=== PATIENT | male | born 2000 | race Caucasian/White ===

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

== ENCOUNTER 2019-07-16 19:19 | Emergency (ER) | payer MEDICAID ==
[2019-07-16] MEDS ORDERED: Ibuprofen 800 MG Tab PO ONE (20:32)
--- NOTE | 2019-07-16 20:55 | EDM.PDOC ---
ED HPI GENERAL MEDICAL PROBLEM - General Chief Complaint: General Stated Complaint: BAD COLD, FEVER Time Seen by Provider: 07/16/19 19:20 Source of Information: Reports: Patient, Family History Limitations: Reports: Other (Developmental delay) - History of Present Illness INITIAL COMMENTS - FREE TEXT/NARRATIVE: chief complaint: cough for 2 weeks, now with fever. This is a 18 year old male present to ER with his Mom, who give report due to Rajat's autism and developmental delay. Reports cough for the past two week, about 4 days started to have intermittent fevers. denies any nausea, vomiting, diarrhea, rash, tick bite, tonsil pain. reports nasal congestion and sore throat. Onset: Gradual Duration: Week(s): (two), Getting Worse Quality: Reports: Other (cough, fever) Severity: Moderate Improves with: Reports: Medication (taking Nyquil) Worsens with: Reports: None Associated Symptoms: Reports: Fever/Chills Treatments GAS ENGINEER: Reports: Acetaminophen (last dose at 1830), NSAIDS Middle Back Pain Score (Numeric/FACES): 8 - Related Data Allergies Allergy/AdvReac Type Severity Reaction Status Date / Time No Known Allergies Allergy Verified 06/28/18 15:40 Home Meds: Home Meds ARIPiprazole [Aripiprazole] 5 mg PO DAILY 06/28/18 [History] Cholecalciferol (Vitamin D3) [Vitamin D3] 1 tab PO DAILY 06/28/18 [History] FLUoxetine HCl [Fluoxetine HCl] 10 mg PO DAILY 06/28/18 [History] Losartan [Cozaar] 50 mg PO DAILY 06/28/18 [History] Ondansetron [Zofran ODT] 4 mg PO Q6H PRN 06/28/18 [History] buPROPion [Wellbutrin SR] 300 mg PO DAILY 06/28/18 [History] traZODone HCl [Trazodone HCl] 300 mg PO BEDTIME 06/28/18 [History] ALPRAZolam [Xanax] 0.25 mg PO ASDIRECTED PRN 07/16/19 [History] Topiramate [Topiramate ER] 100 mg PO DAILY 07/16/19 [History] Past Medical History HEENT History: Reports: Other (See Below) Other HEENT History: Ear infections Cardiovascular History: Reports: Arrhythmia, Hypertension, Other (See Below) Other Cardiovascular History: Other heart problems Respiratory History: Reports: Asthma, Other (See Below) Other Respiratory History: Bronchial spasms Gastrointestinal History: Reports: None Genitourinary History: Reports: Other (See Below) Other Genitourinary History: Bladder problems Musculoskeletal History: Reports: None Neurological History: Reports: Migraines, Speech Problems, Other (See Below) Other Neuro History: Some short term memory loss, apraxia Psychiatric History: Reports: Anxiety, Autism, Depression Endocrine/Metabolic History: Reports: Diabetes, Type II, Other (See Below) Other Endocrine/Metabolic History: Weight problems, off medication for DM Hematologic History: Reports: None Immunologic History: Reports: None Oncologic (Cancer) History: Reports: None Dermatologic History: Reports: None - Past Surgical History Head Surgeries/Procedures: Reports: None Social & Family History - Tobacco Use Smoking Status *Q: Never Smoker - Caffeine Use Caffeine Use: Reports: Coffee - Recreational Drug Use Recreational Drug Use: No - Living Situation & Occupation Living situation: Reports: Single, with Family (lives with Mom, siblings) Occupation: Disabled ED ROS GENERAL - Review of Systems Review Of Systems: See Below Constitutional: Reports: Fever, Chills HEENT: Reports: Sinus Problem, Throat Pain Respiratory: Reports: Cough (painful cough) Cardiovascular: Reports: No Symptoms Endocrine: Reports: No Symptoms GI/Abdominal: Reports: No Symptoms : Reports: No Symptoms Musculoskeletal: Reports: No Symptoms Skin: Reports: No Symptoms Neurological: Reports: No Symptoms Psychiatric: Reports: No Symptoms Hematologic/Lymphatic: Reports: No Symptoms Immunologic: Reports: No Symptoms ED EXAM, GENERAL - Physical Exam Exam: See Below Exam Limited By: Other (autism and developmental delay) General Appearance: Alert, No Apparent Distress, Obese Eye Exam: Bilateral Eye: EOMI, Normal Inspection Ears: Normal External Exam, Normal Canal Ear Exam: Bilateral Ear: Canal Normal, TM Bulging Nose: Nasal Tenderness, Nasal Swelling, Clear Rhinorrhea Throat/Mouth: Normal Lips, Normal Teeth, Normal Gums, Normal Voice, No Airway Compromise, Inflammation (pharynx) Head: Atraumatic, Normocephalic Neck: Normal Inspection, Supple, Non-Tender, Full Range of Motion Respiratory/Chest: No Respiratory Distress, Lungs Clear, No Accessory Muscle Use , Chest Non-Tender, Rhonchi (with cough otherwise clear) Cardiovascular: Regular Rate, Rhythm, No Murmur GI/Abdominal: Normal Bowel Sounds, Soft, Non-Tender Back Exam: Normal Inspection, Full Range of Motion Extremities: Normal Inspection, Normal Range of Motion Neurological: Alert, Normal Cognition (at baseline for patient) Psychiatric: Normal Affect, Normal Mood Skin Exam: Warm, Dry, Intact, Normal Color, No Rash Lymphatic: No Adenopathy Course - Vital Signs Last Recorded V/S: Last Vital Signs Temp 37.7 C 07/16/19 20:45 Pulse 118 H 07/16/19 19:59 Resp 20 07/16/19 19:59 BP 151/94 H 07/16/19 19:59 Pulse Ox 95 07/16/19 19:59 - Orders/Labs/Meds Orders: Active Orders 24 hr Category Date Time Status CULTURE STREP A CONFIRMATION [] Stat Lab 07/16/19 19:48 Results STREP SCRN A RAPID W CULT CONF [] Stat Lab 07/16/19 19:48 Results Meds: Medications Discontinued Medications Generic Name Dose Route Start Last Admin Trade Name Freq PRN Reason Stop Dose Admin Ibuprofen 800 mg 07/16/19 20:32 07/16/19 20:45 Motrin PO 07/16/19 20:33 800 mg ONETIME ONE Administration - Re-Assessments/Exams Free Text/Narrative Re-Assessment/Exam: 07/16/19 rapid strep and influenza A and B are negative will treat for bronchitis due to fever of 101, cough greater than 2 weeks. Mom reports had flu shot last week. given script for Instyl meds Zithromax and Robitussin AC, advise to follow up in 2 days sooner if not improved or symptoms worsen. Mom agrees with plan of ca Departure - Departure Time of Disposition: 20:51 Disposition: Home, Self-Care 01 Condition: Good Clinical Impression: Acute bronchitis with symptoms > 10 days - Discharge Information *PRESCRIPTION DRUG MONITORING PROGRAM REVIEWED*: Not Applicable *COPY OF PRESCRIPTION DRUG MONITORING REPORT IN PATIENT ISA: Not Applicable Instructions: Acute Bronchitis, Adult, [id number] Referrals: Sagrario Costa MD [Primary Care Provider] - Forms: ED Department Discharge Care Plan Goals: Acute Bronchitis greater than 10 days -start tonight Zithromax 2 tablets tonight, then one tablet daily x 4 days -start tonight Robitussin AC 10 ml every 4 to 6 hours for painful cough -continue Motrin and Tylenol for pain or fever -recheck in 2 days if not improving Return to ER for any worsen fever, increased pain, increased cough, or any concerns. or not improved - Problem List & Annotations (1) Acute bronchitis with symptoms > 10 days SNOMED Code(s): 42003239 Code(s): J20.9 - ACUTE BRONCHITIS, UNSPECIFIED Status: Acute Priority: High - Problem List Review Problem List Initiated/Reviewed/Updated: Yes - My Orders Last 24 Hours: My Active Orders 07/16/19 19:48 CULTURE STREP A CONFIRMATION [RM] Stat STREP SCRN A RAPID W CULT CONF [RM] Stat - Assessment/Plan Last 24 Hours: My Active Orders 07/16/19 19:48 CULTURE STREP A CONFIRMATION [RM] Stat STREP SCRN A RAPID W CULT CONF [RM] Stat Plan: Acute Bronchitis greater than 10 days -start tonight Zithromax 2 tablets tonight, then one tablet daily x 4 days -start tonight Robitussin AC 10 ml every 4 to 6 hours for painful cough -continue Motrin and Tylenol for pain or fever -recheck in 2 days if not improving Return to ER for any worsen fever, increased pain, increased cough, or any concerns. or not improved
== END 2019-07-16 21:13 | disposition home or self-care (01) ==
LOC: JP.ED 19:19
DX: J20.9 Acute bronchitis, unspecified (principal); I10 Essential (primary) hypertension; F41.9 Anxiety disorder, unspecified; F32.9 Major depressive disorder, single episode, unspecified; E11.9 Type 2 diabetes mellitus without complications; J45.909 Unspecified asthma, uncomplicated; Z79.899 Other long term (current) drug therapy
CPT/HCPCS: 87081; 87804; 87880; 99283; A9270

== ENCOUNTER 2020-10-31 06:52 | Inpatient (IN) | payer MEDICAID ==
[~2020-10-31 06:52] MED LIST: cefOXitin 2 GM Vial ONE
[2020-10-31] MEDS ORDERED: Acetaminophen 500 MG Tab PO ONE (07:00)
[2020-10-31] MEDS ORDERED: Scopolamine 1.5 MG Transdermal Patch TRDERM ONE (07:00)
[2020-10-31] MEDS ORDERED: Celecoxib 200 MG Cap PO ONE (07:00)
[2020-10-31] MEDS ORDERED: fentaNYL 250 MCG/5 ML SDV ONE ×2 (07:09→09:07)
[2020-10-31] MEDS ORDERED: Neostigmine Methylsulfate 1 MG/ML 5 ML Syringe ONE (07:10)
[2020-10-31] MEDS ORDERED: Dexamethasone 4 MG/ML SDV ONE (07:10)
[2020-10-31] MEDS ORDERED: Propofol 200 MG/20 ML SDV ONE (07:10)
[2020-10-31] MEDS ORDERED: Succinylcholine 200 MG/10 ML MDV ONE (07:10)
[2020-10-31] MEDS ORDERED: Rocuronium 50 MG/5 ML Vial ONE (07:10)
[2020-10-31] MEDS ORDERED: Glycopyrrolate 0.2 MG/ML 5 ML MDV ONE (07:10)
[2020-10-31] MEDS ORDERED: Ondansetron 4 MG/2 ML SDV ONE (07:10)
[2020-10-31] MEDS ORDERED: Magnesium Sulfate 9 GM in Sodium Chloride 0.9% 250 ML IV ONE (07:30)
[2020-10-31] MEDS ORDERED: Ketamine 50 MG in Sodium Chloride 0.9% 49.5 ML IV SCH (07:30)
[2020-10-31] MEDS ORDERED: Ketamine 500 MG/5 ML MDV IV SCH (07:30)
[2020-10-31] MEDS ORDERED: Dextrose 5%-Lactated Ringers 1,000 ML IV SCH (07:30)
[2020-10-31] MEDS ORDERED: Albuterol/Ipratropium 3.0-0.5 MG/3 ML Neb Soln NEB ONE (08:00)
[2020-10-31] MEDS ORDERED: cefOXitin 2 GM in Sodium Chloride 0.9% 50 ML IV ONE (08:15)
[2020-10-31] MEDS ORDERED: Lactated Ringers 1,000 ML ONE (09:11)
[2020-10-31] MEDS ORDERED: Labetalol 20 MG/4 ML Syringe ONE (09:24)
[2020-10-31] MEDS ORDERED: hydrOXYzine HCL 100 MG/2 ML SDV IM ONE (10:17)
[2020-10-31] MEDS ORDERED: fentaNYL 100 MCG/2 ML SDV IVPUSH ONE (10:18)
[2020-10-31] MEDS ORDERED: Cyclobenzaprine 10 MG Tab PO PRN (11:45)
[2020-10-31] MEDS ORDERED: Ondansetron 4 MG/2 ML SDV IVPUSH PRN (12:00)
[2020-10-31] MEDS ORDERED: Albuterol/Ipratropium 3.0-0.5 MG/3 ML Neb Soln INH PRN (12:00)
[2020-10-31] MEDS ORDERED: HYDROmorphone 1 MG/ML Syringe IV PRN (12:00)
[2020-10-31] MEDS ORDERED: Labetalol 20 MG/4 ML Syringe IVPUSH PRN (12:00)
[2020-10-31] MEDS ORDERED: hydrOXYzine HCL 100 MG/2 ML SDV IM PRN (12:00)
[2020-10-31] MEDS ORDERED: oxyCODONE 5 MG Tab PO PRN (12:00)
[2020-10-31] MEDS ORDERED: HYDROmorphone 0.5 MG/0.5 ML Syringe IVPUSH PRN (12:00)
[2020-10-31] MEDS ORDERED: Calcium Gluconate 10% 1 GM/10 ML SDV IVPUSH PRN (12:00)
[2020-10-31] MEDS ORDERED: Acetaminophen 500 MG Tab PO PRN (12:00)
[2020-10-31] MEDS ORDERED: diphenhydrAMINE 50 MG/ML SDV IVPUSH PRN (12:00)
[2020-10-31] MEDS ORDERED: Metoclopramide 10 MG/2 ML SDV IVPUSH PRN (12:00)
[2020-10-31] MEDS ORDERED: ALPRAZolam 0.25 MG Tab PO PRN (12:05)
[2020-10-31] MEDS ORDERED: Pantoprazole 40 MG Vial IVPUSH SCH (14:30)
[2020-10-31] MEDS: Albuterol/Ipratropium 3.0-0.5 MG/3 ML Neb Soln INH SCH ×2 (14:44→20:09)
[2020-10-31] MEDS: cefOXitin 2 GM in Sodium Chloride 0.9% 50 ML IV SCH ×2 (15:37→19:58)
[2020-10-31] MEDS: Heparin Sodium 5,000 Units/ML Vial SUBCUT SCH (15:39)
[2020-10-31] MEDS: Acetaminophen 500 MG Tab PO SCH (15:39)
[2020-10-31] MEDS: Losartan 50 MG Tab PO SCH (15:41)
[2020-10-31] MEDS ORDERED: MVI, Adult with Vitamin K 10 ML, Thiamine 200 MG, Zinc/Copper/Manganese/Selenium 1 ML i... IV SCH ×4 (16:00)
[2020-10-31] MEDS: ARIPiprazole 10 MG Tab PO SCH (20:04)
[2020-10-31] MEDS: Escitalopram 20 MG Tab PO SCH (20:04)
[2020-10-31] MEDS: Docusate Sodium 100 MG Cap PO SCH (20:04)
[2020-10-31] MEDS: Topiramate 100 MG Tab PO SCH (20:05)
[2020-10-31] MEDS: traZODone 50 MG Tab PO SCH (20:05)
[2020-10-31] MEDS: Dextrose 5%-Lactated Ringers 1,000 ML IV SCH (22:20)
[2020-11-01] MEDS: Heparin Sodium 5,000 Units/ML Vial SUBCUT SCH ×4 (00:07→23:52)
[2020-11-01] MEDS: Acetaminophen 500 MG Tab PO SCH ×4 (00:07→23:52)
[2020-11-01] MEDS: cefOXitin 2 GM in Sodium Chloride 0.9% 50 ML IV SCH ×3 (02:42→14:47)
[2020-11-01] MEDS: Dextrose 5%-Lactated Ringers 1,000 ML IV SCH (04:18)
[2020-11-01] MEDS ORDERED: Iopamidol 612 MG/ML 50 ML SDV PO ONE (04:52)
[2020-11-01] MEDS ORDERED: Ondansetron 4 MG Tab.DIS PO PRN (07:17)
[2020-11-01] MEDS: Albuterol/Ipratropium 3.0-0.5 MG/3 ML Neb Soln INH SCH ×4 (07:19→21:15)
[2020-11-01] MEDS ORDERED: Dextrose 5%-Lactated Ringers 1,000 ML IV SCH (07:30)
--- NOTE | 2020-11-01 08:05 | PN ---
DATE OF SERVICE: 11/01/2020 SUBJECTIVE: Rajat is postoperative day #1. Upper GI was normal. He has been up ambulating. Pain has been managed with the energy protocol. Oral intake was 840. Urine output 2000. LIVIA drain put out 70 mL of a light pink drainage. Remainder of review of systems negative for any pertinent positives and negatives. OBJECTIVE: GENERAL: Rajat Ace is a pleasant 20-year-old male. He is alert and orientated. VITAL SIGNS: TPR is 96.9, 92, 18. Blood pressure 142/74. HEENT: Negative. NECK: Supple. HEART: Regular rate and rhythm. LUNGS: Clear. ABDOMEN: Dressings dry and intact. Abdominal binder is on. LIVIA drain intact. EXTREMITIES: Without peripheral edema. ASSESSMENT: 1. Sleeve gastrectomy. 2. Liver biopsy. 3. Repair of diaphragmatic hernia. 4. Excision of mediastinal lipoma. POSTOPERATIVE DIAGNOSES: 1. Morbid obesity. 2. Hepatomegaly. 3. Diaphragmatic hernia. 4. Mediastinal lipoma. Date of procedure: 10/31/2020. Surgeon: Jack Dye MD. PLAN: 1. Decrease IV to 100 mL per hour. 2. May shower. 3. Zofran ODT 4 mg every 4 hours p.r.n. nausea. 4. Bariatric step 2 gastric bypass diet with no cereal. 5. Communication order, 3 med cups per hour, 1 every 20 minutes. 6. We will evaluate p.r.n. or in a.m. Lynnette Blackburn PA-C /[id number]
[2020-11-01] MEDS: Loratadine 10 MG Tab PO SCH (08:47)
[2020-11-01] MEDS: Fluticasone Propionate Nasal Spray 16 GM Bottle NASBOTH SCH (08:47)
[2020-11-01] MEDS: buPROPion 150 MG Tab.ER PO SCH (08:47)
[2020-11-01] MEDS: Docusate Sodium 100 MG Cap PO SCH ×2 (08:47→21:15)
[2020-11-01] MEDS: Celecoxib 200 MG Cap PO SCH ×2 (08:47→21:14)
[2020-11-01] MEDS: SCOPOLAMINE PATCH CHECK TOP SCH (08:48)
--- NOTE | 2020-11-01 09:06 | CR ---
UGI Limited HISTORY: Postbariatric surgery FINDINGS: Patient swallowed water-soluble contrast. Upright views of the abdomen show no evidence of extravasation or obstruction. There is a surgical drain in the left upper quadrant IMPRESSION: Status post bariatric surgery No extravasation or obstruction seen
[2020-11-01] MEDS: Losartan 50 MG Tab PO SCH (09:47)
[2020-11-01] MEDS ORDERED: Sodium Chloride 0.9% 10 ML Syringe IV PRN (11:25)
[2020-11-01] MEDS ORDERED: Pantoprazole 40 MG Delayed-Release Granules 1 Packet PO SCH (14:00)
[2020-11-01] MEDS ORDERED: MVI, Adult with Vitamin K 10 ML, Thiamine 200 MG, Zinc/Copper/Manganese/Selenium 1 ML i... IV SCH ×4 (16:00)
[2020-11-01] MEDS: traZODone 50 MG Tab PO SCH (21:13)
[2020-11-01] MEDS: Escitalopram 20 MG Tab PO SCH (21:14)
[2020-11-01] MEDS: Topiramate 100 MG Tab PO SCH (21:14)
[2020-11-01] MEDS: ARIPiprazole 10 MG Tab PO SCH (21:15)
[2020-11-02] MEDS: Albuterol/Ipratropium 3.0-0.5 MG/3 ML Neb Soln INH SCH ×2 (07:18→11:13)
[2020-11-02] MEDS ORDERED: Cyanocobalamin (Vitamin B12) 1,000 MCG/ML SDV IM ONE (09:00)
[2020-11-02] MEDS: Acetaminophen 500 MG Tab PO SCH (09:14)
[2020-11-02] MEDS: buPROPion 150 MG Tab.ER PO SCH (09:14)
[2020-11-02] MEDS: Celecoxib 200 MG Cap PO SCH (09:14)
[2020-11-02] MEDS: Docusate Sodium 100 MG Cap PO SCH (09:15)
[2020-11-02] MEDS: Losartan 50 MG Tab PO SCH (09:15)
[2020-11-02] MEDS: Loratadine 10 MG Tab PO SCH (09:15)
[2020-11-02] MEDS: Heparin Sodium 5,000 Units/ML Vial SUBCUT SCH (09:16)
[2020-11-02] MEDS: SCOPOLAMINE PATCH CHECK TOP SCH (09:16)
[2020-11-02] MEDS: Fluticasone Propionate Nasal Spray 16 GM Bottle NASBOTH SCH (09:17)
--- NOTE | 2020-11-02 10:01 | DISCH ---
ADMISSION DIAGNOSES: 1. Morbid obesity, body mass index 58. 2. Sleep apnea. 3. Asperger's syndrome. 4. Diabetes type 2. DISCHARGE DIAGNOSES: 1. Sleeve gastrectomy. 2. Liver biopsy. 3. Repair of diaphragmatic hernia. 4. Excision of mediastinal lipoma. POSTOPERATIVE DIAGNOSES: 1. Morbid obesity. 2. Hepatomegaly. 3. Diaphragmatic hernia. 4. Mediastinal lipoma. 5. Date of procedure: 10/31/2020. Surgeon: Jack Dye MD. HISTORY: Rajat Ace is a pleasant 20-year-old male with longstanding history of morbid obesity and increasing comorbidities. After preoperative evaluation and discussion of possible risks and possible complications, he wished to proceed with surgical procedure. HOSPITAL COURSE: Rajat had his surgery on 10/31/2020. He had no operative complications. On postoperative day #1, his upper GI was normal and he was advanced to step 2 gastric bypass diet with no cereal. He was able to shower. IV rate decreased. On postoperative day #2, vital signs stable. He received dietary instruction. Oral intake was 1530. Urine output 2225. He was able to be discharged to home. PHYSICAL EXAMINATION: GENERAL: Rajat Ace is a 20-year-old male. VITAL SIGNS: Height 5 feet 11 inches, weight is 421 pounds 9.6 ounces, BMI 58. TPR 97.3, 106, 16, blood pressure 149/75. HEENT: Negative. NECK: Supple. HEART: Regular rate and rhythm. LUNGS: Clear. ABDOMEN: Incisions look good. LIVIA drain will be removed and 4x4s will be placed over the LIVIA drain site prior to discharge. Abdominal binder has been on. EXTREMITIES: Without peripheral edema. DISPOSITION: Discharged to home. CONDITION: Stable and improving. FOLLOWUP APPOINTMENTS: With Lynnette Blackburn PA-C, on 11/11/2020 at 9 a.m. HOME MEDICATIONS: 1. Tylenol 1000 mg every 8 hours p.r.n. pain. 2. Celebrex 200 mg b.i.d. for 2 weeks. 3. He is to resume his home medication of: a. Topiramate 100 mg at bedtime. b. Aripiprazole 5 mg daily. c. Albuterol in DuoNeb 3 mL inhalation every 4 hours p.r.n. wheezing. d. Robitussin AC 10 mL p.o. q.4 hours p.r.n. cough. e. ProAir 2 puffs inhalation every 4 hours p.r.n. f. Lexapro 20 mg p.o. daily. g. Xanax 0.25 mg p.o. as directed for anxiety. h. Cozaar 50 mg p.o. daily. i. Loratadine 10 mg p.o. daily. j. Flonase 2 sprays inhalation daily p.r.n. k. Omeprazole 20 mg daily. l. Triamcinolone/Kenalog cream 1 applicator daily p.r.n. m. Zofran ODT 4 mg every 6 hours. n. Bupropion 300 mg p.o. daily. o. Trazodone 200 mg p.o. at bedtime. p. MiraLax 1 packet p.o. daily p.r.n. DIET: Full liquid diet with no cereal until 11/29/2020. Drink 8 to 10 glasses of water a day. ACTIVITY: No lifting greater than 10 pounds for 2 weeks. Walk 6 times daily inside your home. Shower/bathing: May shower. Keep operative site clean and dry. Wear abdominal binder for 2 weeks and then as tolerated. Notify provider if any fever, increased pain, swelling, redness, drainage, nausea, vomiting. Use incentive spirometer 10 times every hour while awake. /[id number]
--- NOTE | 2020-11-06 15:10 | OR ---
DATE OF PROCEDURE: 10/31/2020 SURGEON: Jack Dye MD PREOPERATIVE DIAGNOSIS: Morbid obesity. POSTOPERATIVE DIAGNOSES: 1. Morbid obesity. 2. Marked hepatomegaly. 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 OPERATIVE PROCEDURES: 1. Laparoscopic sleeve gastrectomy (14820). 2. Tor-Cut needle liver biopsy (17041). 3. Repair of paraesophageal diaphragmatic hernia (19107). 4. Excision of mediastinal lipoma (40902). ANESTHESIA: General. WATER VALVE REPAIRER: Lynnette Blackburn PA-C INDICATIONS FOR PROCEDURE: This is a 20-year-old male presenting with longstanding morbid obesity and increasingly significant comorbidities. After preoperative evaluation with the patient and family, the plan is to proceed with a sleeve gastrectomy. Potential risks of the procedure including bleeding, infection, and leak from the staple line as well as possibility of cardiopulmonary, septic, or hemorrhagic complications leading to were discussed, and the patient and family wished to proceed. DETAILS OF PROCEDURE: The patient was taken to the operating room and placed in a supine position. After general endotracheal anesthesia was induced, he was converted to a lithotomy position, and the abdomen prepped and draped. At 15 cm inferior and 5 cm left of the xiphoid process, a transverse incision was made, and peritoneal cavity entered under direct vision with an Optiview trocar, inflated to 15 mmHg pressure with CO2. Laparoscope was reinserted. No underlying trocar insertion site injuries were seen. Bilateral transversus abdominis plane blocks were placed, and 5 additional trocars were placed across the upper mid abdomen. The patient was noted to have marked hepatomegaly with liver volume being roughly 2 to 3 times normal. Tor-Cut needle biopsies were obtained from left lobe of liver. Minimal bleeding from biopsy sites was controlled with electrocautery. The liver was then retracted anteriorly. The patient was noted to have a moderate-sized paraesophageal diaphragmatic hernia containing preperitoneal fat, some gastric fundus as well as a tongue of omentum. The hernia was reduced. The peritoneum overlying incised and reflected downwards. During the course of dissection, a mediastinal lipoma was encountered, and this was reflected downwards to allow a more adequate crural closure. The crura were then approximated with some 0 Ethibond sutures reinforced with PTFE pledgets placed anteriorly. At this point, the omentum along the greater curvature of the stomach was divided away from the stomach with Harmonic scalpel. This dissection was continued proximally across the short gastric including the highest short gastric vessels and included dissection of the posterior fundus away from the left isidro to avoid cul-de-sac of stomach remaining in that area following the resection. The omentum was then resected downwards to a point 2 cm proximal to the pylorus in a distal direction at that point as well. The initial staple line for the gastrectomy was then mapped out with electrocautery coming across the point 2 cm proximal to the pylorus, across the antrum, and then underneath the incisura angularis with care to avoid overtightening of that area. The additional 3 firings of the staple line were then reinforced with FELIPE black loads. Following this, a 32-Khmer suction tube was placed orally per Anesthesia and placed across the lesser curvature where it was placed on suction. Remainder of the gastrectomy staple line was then accomplished with a series of reinforced black and purple loads, taking it up to and through the area adjacent to angle of His. Care was taken to adhere slightly to the left of the angle to His so as to avoid stapling down the esophagus. At that point, the staple lines appeared to be adequate. The fibrin sealant was then placed along the staple line focusing on the area of esophagogastric junction. The omentum was then pulled up along the staple line as well. There was enough redundant omentum. This came up without needing to have suture reinforcement. Leak test was accomplished with injection of air into the remaining stomach while it was submerged with cefoxitin-containing saline solution. No leaks or bleeding problems were identified. The gastric specimen was then retrieved through left lateral trocar site, and Gaurav-Grimes drain taken through that location as well and placed adjacent to the esophagogastric junction and from there up into the splenic fossa. The trocars were then sequentially removed. The peritoneal cavity deflated. Incisions were closed with 4-0 Vicryl skin stitch. Dressing was applied. The patient was taken to the recovery room in satisfactory condition. Physician miller head assistant wet process, Lynnette Blackburn PA-C, played an essential role in assisting in this case, helping to position the patient, retract structures as needed, as well as suturing and cutting sutures when indicated. Her presence improved patient safety and decreased the operative time. Jack Dye MD /[id number]
== END 2020-11-02 11:54 | disposition home or self-care (01) | DRG 620 ==
LOC: JP.MS 06:52 → JP.SDS 06:53 → JP.MS 10:10 → EDSTATUS 10:45
PROVIDERS: ADMIT Surgery; ATTEND Surgery
PROC: 0DB64Z3 Excision of Stomach, Percutaneous Endoscopic Approach, Vertical (ICD-10-PCS; principal; 2020-10-31)
PROC: 0FB24ZX Excision of Left Lobe Liver, Percutaneous Endoscopic Approach, Diagnostic (ICD-10-PCS; 2020-10-31)
PROC: 0BQT4ZZ Repair Diaphragm, Percutaneous Endoscopic Approach (ICD-10-PCS; 2020-10-31)
PROC: 0JB63ZZ Excision of Chest Subcutaneous Tissue and Fascia, Percutaneous Approach (ICD-10-PCS; 2020-10-31)
DX: E66.01 Morbid (severe) obesity due to excess calories (principal); F84.5 Asperger's syndrome; G47.30 Sleep apnea, unspecified; E11.9 Type 2 diabetes mellitus without complications; R16.0 Hepatomegaly, not elsewhere classified; K44.9 Diaphragmatic hernia without obstruction or gangrene; D17.1 Benign lipomatous neoplasm of skin and subcutaneous tissue of trunk; Z68.43 Body mass index [BMI] 50.0-59.9, adult; Z79.899 Other long term (current) drug therapy
CPT/HCPCS: 36415; 74240; 74240-26; 80053; 83735; 84100; 85027; 86850; 86900; 86901; 88304; 88307; 88313; 93005; 94640; 97110-GP; 97161-GP; 97530-GP; 97535-GP; A9270-GY; C9113; J0171; J0330; J0694; J1100; J1644; J2405; J2704; J2710; J2795; J3010; J3410; J3411; J3420; J3475; J3490; J7050; J7120; J7121; J7620-GY; Q9967

== ENCOUNTER 2020-12-03 04:06 | Emergency (ER) | payer MEDICAID ==
--- NOTE | 2020-12-03 04:57 | EDM.PDOC ---
ED HPI GENERAL MEDICAL PROBLEM - General Chief Complaint: Genitourinary Problem Stated Complaint: LOW ABD PAIN Time Seen by Provider: 12/03/20 04:44 Source of Information: Reports: Patient History Limitations: Reports: No Limitations - History of Present Illness INITIAL COMMENTS - FREE TEXT/NARRATIVE: Patient presents from home concerned that he may have another episode of pros tatitis. He has been treated 3 previous times for what has been felt to be prostatitis. He will get pain in the tip of his penis and also in the left hip region which, based on previous visits, was felt to be indicative of prostatitis. He generally has been treated with antibiotics and symptoms have improved. When the pain comes on, it is gradual but persistent and then seems to be constant. The pain with the tip of the penis tonight was noted when he also had an erection. There was no actual testicle pain. No pain between the legs. He has not had an ultrasound of the prostate. Onset: Today Duration: Hour(s): (7) Location: Reports: Pelvis, Lower Extremity, Left Quality: Reports: Ache, Stabbing Severity: Moderate Improves with: Reports: None Worsens with: Reports: None Left Hip Pain Score (Numeric/FACES): 5 - Related Data Allergies Allergy/AdvReac Type Severity Reaction Status Date / Time No Known Allergies Allergy Verified 12/03/20 04:24 Home Meds: Home Meds ARIPiprazole [Aripiprazole] 5 mg PO DAILY 06/28/18 [History] Losartan [Cozaar] 50 mg PO DAILY 06/28/18 [History] Ondansetron [Zofran ODT] 4 mg PO Q6H PRN 06/28/18 [History] buPROPion [Wellbutrin SR] 300 mg PO DAILY 06/28/18 [History] traZODone HCl [Trazodone HCl] 200 mg PO BEDTIME 06/28/18 [History] ALPRAZolam [Xanax] 0.25 mg PO ASDIRECTED PRN 07/16/19 [History] Loratadine 10 mg PO DAILY 08/12/19 [History] Albuterol Sulfate [Proair Hfa] 2 puff INH Q4HR PRN 10/28/20 [History] Albuterol [Proventil Neb Soln] 3 ml INH Q4HR PRN 10/28/20 [History] Codeine/guaiFENesin [Robitussin AC] 10 ml PO Q4HR PRN 10/28/20 [History] Escitalopram [Lexapro] 20 mg PO DAILY 10/28/20 [History] Fluticasone Propionate [Flonase] 2 spray INH DAILY PRN 10/28/20 [History] Omeprazole 20 mg PO DAILY 10/28/20 [History] Triamcinolone Acetonide [Kenalog 0.1% Crm] 1 applic TOP DAILY PRN 10/28/20 [History] polyethylene glycoL 3350 [MiraLAX] 1 pkt PO DAILY PRN 10/28/20 [History] Topiramate 100 mg PO BEDTIME 10/31/20 [History] Acetaminophen [Tylenol Extra Strength] 1,000 mg PO Q8H tablet 11/02/20 [Rx] Past Medical History HEENT History: Reports: Other (See Below) Other HEENT History: Ear infections Cardiovascular History: Reports: Arrhythmia, Hypertension, Syncope, Other (See Below) Other Cardiovascular History: Other heart problems Respiratory History: Reports: Asthma, Bronchitis, Recurrent, Other (See Below) Other Respiratory History: Bronchial spasms Gastrointestinal History: Reports: Chronic Constipation, GERD Genitourinary History: Reports: Retention, Urinary, Urinary Incontinence, Other (See Below) Other Genitourinary History: Bladder problems, prostate infections Musculoskeletal History: Reports: Other (See Below) Other Musculoskeletal History: left hip pain Neurological History: Reports: Migraines, Speech Problems, Other (See Below) Other Neuro History: Some short term memory loss, apraxia Psychiatric History: Reports: Anxiety, Autism, Depression Endocrine/Metabolic History: Reports: Diabetes, Type II, Other (See Below) Other Endocrine/Metabolic History: Weight problems, off medication for DM Hematologic History: Reports: None Immunologic History: Reports: None Oncologic (Cancer) History: Reports: None Dermatologic History: Reports: Eczema, Other (See Below) Other Dermatologic History: rash - Past Surgical History Head Surgeries/Procedures: Reports: None HEENT Surgical History: Reports: Tonsillectomy Male Surgical History: Reports: Other (See Below) Other Male Surgeries/Procedures: as surgery to open urethra Social & Family History - Tobacco Use Tobacco Use Status *Q: Never Tobacco User Second Hand Smoke Exposure: No - Caffeine Use Caffeine Use: Reports: None Other Caffeine Use: stopped drinking soda 1 month ago - Recreational Drug Use Recreational Drug Use: No - Living Situation & Occupation Living situation: Reports: Single, with Family (lives with Mom, siblings) Occupation: Disabled ED ROS GENERAL - Review of Systems Review Of Systems: See Below Constitutional: Reports: No Symptoms GI/Abdominal: Reports: Abdominal Pain : Reports: Hematuria, Pain (Tip of penis.) Musculoskeletal: Reports: Joint Pain (Left hip region.) Neurological: Reports: No Symptoms ED EXAM, RENAL/ - Physical Exam Exam: See Below Text/Narrative:: Patient appears composed and is lying down on the bed in room 5. Exam Limited By: Other (Asperger's Disease intellectual filter) General Appearance: Alert, No Apparent Distress (Male) Exam: Normal Prostate (It is difficult to completely palpate the prostate due to body size but it does not feel enlarged on my limited exam. There is no testicle discomfort nor perineal pain.), Circumcised, Rash (Skin fo ld dermatitis that looks fungal.). No: Testicular Mass, Testicular Tenderness (L), Testicular Tenderness (R) Rectal (Males) Exam: Normal Rectal Tone, Prostate Normal Course - Vital Signs Last Recorded V/S: Last Vital Signs Temp 36.6 C 12/03/20 04:23 Pulse 69 12/03/20 04:23 Resp 16 12/03/20 04:23 BP 110/50 L 12/03/20 04:23 Pulse Ox 96 12/03/20 04:23 - Orders/Labs/Meds Orders: Active Orders 24 hr Category Date Time Status Abdomen Pelvis wo Cont [CT] Stat Exams 12/03/20 06:11 Ordered Hip Min 2V or 3V w Pelvis Lt [CR] Stat Exams 12/03/20 05:08 Ordered Labs: Laboratory Tests 12/03/20 12/03/20 12/03/20 Range/Units 04:48 05:15 06:16 WBC 6.0 (4.5-11.0) K/uL RBC 5.15 (4.30-5.90) M/uL Hgb 15.4 H (12.0-15.0) g/dL Hct 47.8 (40.0-54.0) % MCV 93 (80-98) fL MCH 30 (27-31) pg MCHC 32 (32-36) % Plt Count 129 L (150-400) K/uL Neut % (Auto) 81 H (36-66) % Lymph % (Auto) 13 L (24-44) % [place] % (Auto) 5 (2-6) % Eos % (Auto) 1 L (2-4) % Baso % (Auto) 0 (0-1) % Sodium 146 (140-148) mmol/L Potassium 3.7 (3.6-5.2) mmol/L Chloride 107 (100-108) mmol/L Carbon Dioxide 25 (21-32) mmol/L Anion Gap 14.4 H (5.0-14.0) mmol/L BUN 11 (7-18) mg/dL Creatinine 1.5 H (0.8-1.3) mg/dL Est Cr Clr Drug Dosing 82.97 mL/min Estimated GFR (MDRD) 59 L (>60) Glucose 122 H (74-106) mg/dL Calcium 9.6 (8.5-10.1) mg/dL Total Bilirubin (0.2-1.0) mg/dL Direct Bilirubin (0.0-0.2) mg/dL Indirect Bilirubin AST (15-37) U/L ALT (12-78) U/L Alkaline Phosphatase (46-116) U/L Total Protein (6.4-8.2) g/dL Albumin (3.4-5.0) g/dL Globulin (2.3-3.5) g/dL Albumin/Globulin Ratio (1.2-2.2) PSA Screen 0.4 (0.0-4.0) ug/L Urine Color [place] A (YELLOW) Urine Appearance Cloudy A (CLEAR) Urine pH 5.0 (5.0-8.0) Ur Specific [place] 1.020 (1.008-1.030) Urine Protein >=300 H (NEGATIVE) mg/dL Urine Glucose (UA) 250 H (NEGATIVE) mg/dL Urine Ketones 80 H (NEGATIVE) mg/dL Urine Occult Blood Large H (NEGATIVE) Urine Nitrite Positive H (NEGATIVE) Urine Bilirubin Large H (NEGATIVE) Urine Urobilinogen >=8.0 H (0.2-1.0) EU/dL Ur Leukocyte Esterase Large H (NEGATIVE) Urine RBC >100 H (0-5) Urine WBC 5-10 H (0-5) Ur Epithelial Cells Rare Amorphous Sediment Urine Bacteria Many Urine Mucus Not seen 12/03/20 Range/Units 06:16 WBC (4.5-11.0) K/uL RBC (4.30-5.90) M/uL Hgb (12.0-15.0) g/dL Hct (40.0-54.0) % MCV (80-98) fL MCH (27-31) pg MCHC (32-36) % Plt Count (150-400) K/uL Neut % (Auto) (36-66) % Lymph % (Auto) (24-44) % [place] % (Auto) (2-6) % Eos % (Auto) (2-4) % Baso % (Auto) (0-1) % Sodium (140-148) mmol/L Potassium (3.6-5.2) mmol/L Chloride (100-108) mmol/L Carbon Dioxide (21-32) mmol/L Anion Gap (5.0-14.0) mmol/L BUN (7-18) mg/dL Creatinine (0.8-1.3) mg/dL Est Cr Clr Drug Dosing mL/min Estimated GFR (MDRD) (>60) Glucose (74-106) mg/dL Calcium (8.5-10.1) mg/dL Total Bilirubin 0.4 D (0.2-1.0) mg/dL Direct Bilirubin 0.14 (0.0-0.2) mg/dL Indirect Bilirubin 0.26 AST 24 (15-37) U/L ALT 47 (12-78) U/L Alkaline Phosphatase 95 (46-116) U/L Total Protein 6.5 (6.4-8.2) g/dL Albumin 4.1 (3.4-5.0) g/dL Globulin 2.4 (2.3-3.5) g/dL Albumin/Globulin Ratio 1.7 (1.2-2.2) PSA Screen (0.0-4.0) ug/L Urine Color (YELLOW) Urine Appearance (CLEAR) Urine pH (5.0-8.0) Ur Specific [place] (1.008-1.030) Urine Protein (NEGATIVE) mg/dL Urine Glucose (UA) (NEGATIVE) mg/dL Urine Ketones (NEGATIVE) mg/dL Urine Occult Blood (NEGATIVE) Urine Nitrite (NEGATIVE) Urine Bilirubin (NEGATIVE) Urine Urobilinogen (0.2-1.0) EU/dL Ur Leukocyte Esterase (NEGATIVE) Urine RBC (0-5) Urine WBC (0-5) Ur Epithelial Cells Amorphous Sediment Urine Bacteria Urine Mucus Meds: Medications Discontinued Medications Generic Name Dose Route Start Last Admin Trade Name Kartik PRN Reason Stop Dose Admin Tamsulosin HCl 0.4 mg 12/03/20 07:13 Flomax PO 12/03/20 07:14 ONETIME ONE - Re-Assessments/Exams Free Text/Narrative Re-Assessment/Exam: 12/03/20 05:21 I discussed with the patient that prostate infection at his age would be extremely rare. The urine sample he gave us was dark red and certainly looks to be hematuria. I am going to x-ray his hip and pelvis region to look at the joints. Given the appearance of his urine and other symptoms, this could be indicative of stone disease too. 12/03/20 06:15 His urine is loaded with red blood cells along with a few white cells there is also protein spilling through the urine. His PSA is normal and my suspicion for this being prostate disease is almost none. I will obtain a CT scan of the abdomen and pelvis to look for stones and also check a hepatic function panel and an actual CBC. He is comfortable appearing at the moment. 12/03/20 07:23 I returned to show him to pictures from his CT scan series but demonstrate 1 stone in the left kidney and another near the left UVJ. That would certainly fit with his description of symptoms although because of his Asperger's disease I think his description of events and presentation when seen is muted or blunted. When I asked about onset of pain initially at our visit he said it came on gradually but after discussing CT results, he said that when the pain started he could not get comfortable in any manner. I discussed that that certainly fit with a stone picture. He will be given 1 tablet of Flomax 0.4 mg here. He can use ibuprofen 800 mg 3 times daily at home for pain. His mother has previous oxycodone from a surgical procedure and he could use that for stronger pain but hopefully his stone will pass quickly given its current position. Multiple questions answered from mom and rationale for care reviewed with both. Departure - Departure Time of Disposition: 07:14 Disposition: Home, Self-Care 01 Condition: Good Clinical Impression: Kidney stone Hematuria Qualifiers: Hematuria type: gross Qualified Code(s): R31.0 - Gross hematuria - Discharge Information Referrals: Sagrario Costa MD [Primary Care Provider] - Forms: ED Department Discharge Additional Instructions: Drink adequate fluids. You may notice bloody urine until you finish passing the stone. Continue to avoid pop as that may have contributed to the development of the stones. For pain at home, you can use ibuprofen 800 mg 3 times a day. For stronger pain, you could use either one half or 1 whole tablet of your mother's Percocet. Either of these medicines will take 45 minutes or so to be effective however. Strain all of your urine until you catch the stone and then return it to the clinic for analysis. You should have your kidney function blood test rechecked a week after you have passed the stone. Return to ER if feeling worse in any way. Sepsis Event Note (ED) - Evaluation Sepsis Screening Result: No Definite Risk - Focused Exam Vital Signs: Vital Signs Temp Pulse Resp BP Pulse Ox 12/03/20 04:23 36.6 C 69 16 110/50 L 96 - My Orders Last 24 Hours: My Active Orders 12/03/20 05:08 Hip Min 2V or 3V w Pelvis Lt [CR] Stat 12/03/20 06:11 Abdomen Pelvis wo Cont [CT] Stat - Assessment/Plan Last 24 Hours: My Active Orders 12/03/20 05:08 Hip Min 2V or 3V w Pelvis Lt [CR] Stat 12/03/20 06:11 Abdomen Pelvis wo Cont [CT] Stat
[2020-12-03] MEDS ORDERED: Tamsulosin 0.4 MG Cap.ER PO ONE (07:13)
--- NOTE | 2020-12-03 07:27 | CRLCT ---
INDICATION: Left lower abdominal pain, hematuria. TECHNIQUE: CT abdomen and pelvis without intravenous contrast. Coronal and sagittal reformats. COMPARISON: None available. FINDINGS: Imaged lower chest unremarkable. - The unenhanced liver, gallbladder, pancreas, spleen, and adrenals are unremarkable. - Kidneys are symmetric in size. No hydronephrosis bilaterally. Tiny punctate nonobstructing calculus in the left lower pole (series 3, image 100). Additional tiny punctate calculus within the dependent aspect of the urinary bladder (series 2, image 227). Prostate unremarkable. - Postsurgical changes of gastric bypass. Bowel appears normal in caliber and thickness diffusely. Tiny fat containing umbilical hernia. No free air, free fluid, or lymphadenopathy. - Normal caliber abdominal aorta. No suspicious osseous lesion. IMPRESSION: 1. Tiny punctate calculus within the urinary bladder, possibly reflecting a recently passed stone. 2. No obstructing nephroureteral calculi or hydronephrosis bilaterally. 3. Punctate nonobstructing left renal calculus. Dictated by Tod Ruth MD @ 12/03/2020 7:25:28 AM Please note that all CT scans at this facility use dose modulation, iterative reconstruction, and/or weight-based dosing when appropriate to reduce radiation dose to as low as reasonably achievable. Dictated by: Tod Ruth MD @ 12/03/2020 07:25:40 (Electronically Signed)
--- NOTE | 2020-12-05 08:52 | CR ---
Hip Min 2V or 3V w Pelvis Lt CLINICAL HISTORY: Left hip pain FINDINGS: No fracture or osseous lesion is identified. There is mild joint space narrowing. There is some subtle cortical sclerosis in the acetabulum. IMPRESSION: No fracture Mild osteoarthritic change
== END 2020-12-03 07:28 | disposition home or self-care (01) ==
LOC: JP.ED 04:06
DX: N20.0 Calculus of kidney (principal); R31.0 Gross hematuria; I10 Essential (primary) hypertension; J45.909 Unspecified asthma, uncomplicated; K21.9 Gastro-esophageal reflux disease without esophagitis; E11.9 Type 2 diabetes mellitus without complications; Z79.899 Other long term (current) drug therapy
CPT/HCPCS: 36415; 73502; 74176; 80048; 80076; 81001; 85025; 99284; A9270; G0103; 99283

== ENCOUNTER 2022-02-19 19:44 | Emergency (ER) | payer MEDICAID ==
[2022-02-19] MEDS ORDERED: Succinylcholine 200 MG/10 ML MDV ONE (19:46)
[2022-02-19] MEDS ORDERED: Propofol 200 MG/20 ML SDV IV ONE (20:00)
[2022-02-19] MEDS ORDERED: Rocuronium 50 MG/5 ML Vial ONE (20:05)
[2022-02-19] MEDS ORDERED: Rocuronium 50 MG/5 ML Vial IV ONE (20:05)
== END 2022-02-19 20:31 ==
LOC: JP.ED 19:44
DX: S09.90XA Unspecified injury of head, initial encounter (principal); J45.909 Unspecified asthma, uncomplicated; K21.9 Gastro-esophageal reflux disease without esophagitis; I10 Essential (primary) hypertension; E11.9 Type 2 diabetes mellitus without complications; Z79.899 Other long term (current) drug therapy; W22.8XXA Striking against or struck by other objects, initial encounter
CPT/HCPCS: 31500; 36415; 71045; 71045-26; 80053; 81001; 83605; 85025; 85610; 85730; 99285-25; 99291; J0330; J2704; J3490

== ENCOUNTER 2023-02-05 06:34 | Day surgery (SDC) | payer MEDICAID ==
[2023-02-05] MEDS ORDERED: Lidocaine 1% with EPINEPHrine 1:100,000 50 ML MDV ONE (06:47)
[2023-02-05] MEDS ORDERED: Bupivacaine 0.5% 50 ML MDV ONE (06:47)
[2023-02-05] MEDS ORDERED: Rocuronium 50 MG/5 ML Vial ONE (06:49)
[2023-02-05] MEDS ORDERED: Propofol 200 MG/20 ML SDV ONE (06:49)
[2023-02-05] MEDS ORDERED: Ondansetron 4 MG/2 ML SDV ONE (06:49)
[2023-02-05] MEDS ORDERED: Succinylcholine 200 MG/10 ML MDV ONE (06:49)
[2023-02-05] MEDS ORDERED: Neostigmine Methylsulfate 1 MG/ML 5 ML Syringe ONE (06:49)
[2023-02-05] MEDS ORDERED: Glycopyrrolate 0.2 MG/ML 5 ML MDV ONE (06:49)
[2023-02-05] MEDS ORDERED: Dexamethasone 4 MG/ML SDV ONE (06:49)
[2023-02-05] MEDS ORDERED: fentaNYL 250 MCG/5 ML SDV ONE (06:51)
[2023-02-05] MEDS ORDERED: Celecoxib 200 MG Cap PO ONE (07:00)
[2023-02-05] MEDS ORDERED: Dextrose 5%-Lactated Ringers 1,000 ML IV SCH (07:00)
[2023-02-05] MEDS ORDERED: Scopolamine 1.5 MG Transdermal Patch TOP ONE (07:00)
[2023-02-05] MEDS ORDERED: Indocyanine Green 25 MG SDV IV ONE (07:15)
[2023-02-05] MEDS ORDERED: Albuterol/Ipratropium 3.0-0.5 MG/3 ML Neb Soln NEB ONE (07:30)
[2023-02-05] MEDS ORDERED: cefOXitin 2 GM in Sodium Chloride 0.9% 50 ML IV ONE (07:45)
[2023-02-05] MEDS ORDERED: fentaNYL 100 MCG/2 ML SDV ONE (07:47)
[2023-02-05] MEDS ORDERED: Ketamine 22 MG in Sodium Chloride 0.9% 19.78 ML IV SCH (08:00)
[2023-02-05] MEDS ORDERED: Ketamine 500 MG/5 ML MDV IV SCH (08:00)
[2023-02-05] MEDS ORDERED: hydrOXYzine HCl 50 MG/ML SDV IM ONE (09:00)
[2023-02-05] MEDS ORDERED: oxyCODONE 5 MG Tab PO ONE (11:30)
== END 2023-02-05 12:12 | disposition home or self-care (01) ==
LOC: JP.SDS 06:34
PROVIDERS: ATTEND Surgery
DX: K80.10 Calculus of gallbladder with chronic cholecystitis without obstruction (principal); I10 Essential (primary) hypertension; G43.909 Migraine, unspecified, not intractable, without status migrainosus; F41.9 Anxiety disorder, unspecified; F32.9 Major depressive disorder, single episode, unspecified; G47.33 Obstructive sleep apnea (adult) (pediatric); E55.9 Vitamin D deficiency, unspecified; Z79.899 Other long term (current) drug therapy
CPT/HCPCS: 47562; 88304; 94640; A9270; J0131; J0171; J0330; J0694; J1100; J2405; J2704; J2710; J2795; J3010; J3410; J3490; J7121; J7620

== ENCOUNTER 2024-06-26 15:11 | Emergency (ER) | payer MEDICAID ==
[2024-06-26] MEDS ORDERED: Sodium Chloride 0.9% 10 ML Syringe FLUSH PRN (16:00)
[2024-06-26 16:54] LABS: APPEARANCE,URINE CLEAR (CLEAR); BILIRUBIN,URINE NEGATIVE (NEGATIVE); COLOR,URINE YELLOW (YELLOW); GLUCOSE,URINE NEGATIVE (NEGATIVE); KETONES,URINE NEGATIVE (NEGATIVE); LEUKOCYTE ESTERASE,URINE NEGATIVE (NEGATIVE); NITRITE,URINE NEGATIVE (NEGATIVE); OCCULT BLOOD,URINE NEGATIVE (NEGATIVE); PROTEIN,URINE NEGATIVE (NEGATIVE); UROBILINOGEN,URINE 0.2 EU/dL (0.2-1.0)
[2024-06-26 17:01] LABS: AMORPHOUS SEDIMENT,URINE NOT SEEN; BACTERIA,URINE RARE; EPITHELIAL CELLS,URINE NOT SEEN; MUCUS,URINE NOT SEEN; RBC,URINE 0-5 (0-5); WBC,URINE 0-5 (0-5)
[2024-06-26 17:06] LABS: BASOPHILS ABSOLUTE AUTO 0.04 K/uL (0.00-0.10); BASOPHILS PERCENT AUTO 0.7 % (0.1-1.3); EOSINOPHILS ABSOLUTE AUTO 0.04 K/uL (0.00-0.40); EOSINOPHILS PERCENT AUTO 0.7 % (0.0-5.4); HEMATOCRIT 46.9 % (38.4-49.7); HEMOGLOBIN 16.6 g/dL (12.9-16.9); IMMATURE GRAN PERCENT AUTO 0.2 % (0.0-0.7); LYMPHOCYTES ABSOLUTE AUTO 1.46 K/uL (0.8-3.3); LYMPHOCYTES PERCENT AUTO 26.1 % (11.4-47.7); MEAN CORPUSCULAR HEMOGLOBIN 31.3 pg (31.6-35.5); MEAN CORPUSCULAR HGB CONC 35.4 g/dL (31.6-35.5); MEAN CORPUSCULAR VOLUME 88.5 fL (81.4-99.0); MONOCYTES ABSOLUTE AUTO 0.38 K/uL (0.20-0.90); MONOCYTES PERCENT AUTO 6.8 % (3.3-12.6); NEUTROPHILS ABSOLUTE AUTO 3.67 K/uL (1.0-7.6); NEUTROPHILS PERCENT AUTO 65.5 % (40.0-78.1); PLATELET COUNT,PLT 169 K/uL (130-375); WHITE BLOOD CELL COUNT,WBC 5.6 K/uL (3.2-11.0)
[2024-06-26 17:08] LABS: IMMATURE GRAN ABSOLUTE AUTO 0.01 K/uL (0.00-0.23)
[2024-06-26 17:22] LABS: ANION GAP 9.9 mmol/L (5.0-14.0); CALCIUM 9.9 mg/dL (8.5-10.1); CREATININE 1.3 mg/dL (0.8-1.3); EST CRCL DRUG DOSING (CG) 96.17 mL/min; POTASSIUM,K 4.1 mmol/L (3.6-5.2)
[2024-06-26] MEDS: Sodium Chloride 0.9% 1,000 ML IV ONE (17:58)
== END 2024-06-26 18:57 | disposition home or self-care (01) ==
LOC: JP.ED 15:11
DX: R55 Syncope and collapse (principal); I10 Essential (primary) hypertension; K21.9 Gastro-esophageal reflux disease without esophagitis; E11.9 Type 2 diabetes mellitus without complications; Z79.899 Other long term (current) drug therapy; Z86.16 Personal history of COVID-19
CPT/HCPCS: 36415; 70450; 80048; 81001; 83605; 83735; 85025; 93005; 96360; 99284; J7030